=== PATIENT | male | born 1965 | race Caucasian/White ===

== ENCOUNTER → 2017-04-12 | Outpatient (CLI) | payer OTHER ==
[~2017-04-12] MED LIST: CIPRO; LORTAB 7.5-5001 TAB PO
--- NOTE | ~2017-04-12 | CR63 ---
[facility] A Service of [facility] RADIOLOGY TEXT RESULTS PATIENT: FLOR BARRY JR LOCATION: [facility] : 69 UNIT #: [id number] AGE: [address]: BETH NOBLES APRN SEX: M ORDER DR: [id number] [place] [address] [facility]. [place], [place] [address] [id number] O MR#: [id number] Acc #: [id number] NAME: FLOR BARRY : 1965 SEX: M STUDY DATE/TIME: 04/12/2017 11:46 UNIT: [facility] ROOM: STUDY DESCRIPTION: CR Chest 2 View Attending Physician: Beth Nobles Aprn Referring Physician: Beth Nobles Aprn Ordering Physician: Beth Nobles Aprn Primary Care Physician: Kamlesh Hallman Jr., M.D. MEDICAL IMAGING REPORT This report is preliminary unless electronic signature is present EXAM AP and lateral chest INDICATIONS Shortness of breath for [id number] weeks. COMPARISON STUDIES 05/10/2004. FINDINGS Calcified granulomas bilaterally. No airspace consolidation. Heart size is normal. Degenerative change thoracic spine. IMPRESSION No active disease. Dictated by... Ramon Hughes M.D. THIS IS AN ELECTRONICALLY VERIFIED REPORT Ramon Hughes M.D. at 04/12/2017 5:30 PM ARS/pcl TD: 04/12/2017 17:01 JOB #: [id number] MEDICAL IMAGING REPORT Page 1 of 1 COPY
== END | disposition home or self-care (01) ==
LOC: CRAD 11:14
DX: R06.02 Shortness of breath (principal); R63.4 Abnormal weight loss
CPT/HCPCS: 71020